=== PATIENT | female | born 1945 | race Caucasian/White ===

== ENCOUNTER → 2018-05-02 | Outpatient (CLI) | payer MEDICARE, BC ==
[~2018-05-02] MED LIST: CELEXA 20MG20 MG/TAB; PRAVACHOL 20MG20 MG
== END ==
LOC: MC.RAD 11:24
DX: Z12.31 Encounter for screening mammogram for malignant neoplasm of breast (principal)

== ENCOUNTER → 2019-05-26 | Outpatient (CLI) | payer MEDICARE, BC | LOC: MC.RAD 09:16 | DX: Z12.31 Encounter for screening mammogram for malignant neoplasm of breast (principal) ==